=== PATIENT | female | born 1990 | race African-American/Black ===

== ENCOUNTER 2021-01-29 18:10 | Emergency (ER) | payer MEDICAID ==
[~2021-01-29] VITALS: Ht 167.6 cm; Wt 117.0 kg
[2021-01-29 18:13] VITALS: BP 137/93
== END 2021-01-29 18:55 | disposition left against medical advice (07) ==
LOC: ER 18:10
DX: M25.511 Pain in right shoulder (principal); Z53.21 Procedure and treatment not carried out due to patient leaving prior to being seen by health care provider